=== PATIENT | male | born 1990 | race Caucasian/White ===

== ENCOUNTER 2025-04-09 07:49 | Outpatient (CLI) | payer BC, SELFPAY ==
--- NOTE | ~2025-04-09 | US_ITS ---
Limited Abdominal Sonogram: Real-time sonographic imaging of the right upper quadrant was performed. Clinical History: Abnormal liver enzymes Findings: The liver appears echogenic, with no evidence of mass lesion or bile duct dilatation. Main portal vein demonstrates normal direction of flow. The gallbladder is well distended, and appears no rmal with no evidence of gallstone or wall thickening. The common bile duct measures 5 mm. The visua lized pancreas, aorta, and IVC are unremarkable. Impression: Diffuse fatty infiltration of liver. Reviewed, dictated and finalized at location M. Impression: Diffuse fatty infiltration of liver.
== END 2025-04-09 07:50 | disposition home or self-care (01) ==
PROVIDERS: PCP Physician Assistant; Visit Provider Physician Assistant
DX: R74.01 Elevation of levels of liver transaminase levels (principal); K76.0 Fatty (change of) liver, not elsewhere classified
CPT/HCPCS: 76705

== ENCOUNTER 2025-04-12 00:31 | Day surgery (SDC) | payer BC, SELFPAY ==
[2025-04-03 13:33] VITALS: BMI 29.5
--- NOTE | 2025-04-03 13:42 | PC.NURSE ---
Report to the Outpatient Waiting Room, entrance under the green pavilion located off [facility], at time _0830_ on date _[id number]_. Planned Procedure Time: _1030_. Time changes happen often and if your time is changed the preop area will call you the afternoon before. - You and your visitor will be asked to self-screen and do not enter if you have any COVID symptoms. Please call surgeon if you need to reschedule. - A mask is optional within the hospital at this time. - No food or drink from midnight until time of surgery and no smoking, or chewing tobacco (or any form of nicotine). No chewing gum, candy or mints. Take only the following medications with a SIP of water on the morning of surgery: __Bupropion, Buspirone and Levothyroxine___ DO NOT STOP ANY OF YOUR OTHER PRESCRIPTION MEDICATIONS PRIOR TO SURGERY EXCEPT THE FOLLOWING Hold all vitamins and supplements for 3 days per anesthesiologist. Medications to discontinue per physician Date to take last dose Please no make-up, nail indonesian, hairspray, perfume, deodorant, or body powder the day of surgery. No jewelry (including any body piercings) or valuables the day of surgery, leave them at home. Please take a shower or bath the night before, or the morning of, surgery with an antibacterial soap. Wear comfortable, loose fitting clothing. - Jewelry must be removed prior to entering the operating room. Rings and piercings that are not removed may be cut off. - The hospital will not accept responsibility for valuables. - Please leave all valuables, including medications, at home the day of surgery. If you are going home after surgery, a licensed driver trainee must drive you home. - NO public transportation without another adult if you receive anesthesia. - We recommend that an adult stay with you for 24 hours following discharge. - We also recommend that you do not drive, make important decision, drink alcoholic beverages, or take any drugs that were not prescribed by your health care provider for at least 24 hours after your discharge time. Follow any additional instructions given to you from your surgeon. Telephone instructions given to __Aman__and asked if any additional questions and then verbalized understanding. Patient advised to call surgeon office or pre surgery nurse liaison [phone] if any additional questions.
--- OUTSIDE RECORDS SUMMARY | 2025-04-12 00:34 | XMS_ITS | Data Portability ---
Author Organization [place] - [email or web address], Main Office Address [address] [place] [address] Assessment No assessment recorded. Plan of Treatment Reminders Order Date Submit Date Provider Last Modified By Organization Details Last Modified Time Details Appointments None recorded. Lab hepatitis panel (A+B+C), acute, serum 2023 024 [email or web address] [facility] (Lab), [address] [place], [address], 4 09:18:19 gamma-gluta myl transferase (ggt), serum 2023 024 [email or web address] 2 [facility] (Lab), [address] [place], [address], 4 09:18:19 amylase, serum or plasma 2023 024 [email or web address] 2 [facility] (Lab), [address] [place], [address], 4 09:18:19 hepatic function panel, serum 2023 024 [email or web address] 2 [facility] (Lab), [address] [place], [address], 4 09:18:19 lipid panel, serum 2023 024 [email or web address] 2 [facility] (Lab), [address] [place], [address], 4 09:40:56 CMP, serum or plasma 2023 024 [email or web address] 2 [facility] (Lab), [address] [place], [address], 4 09:40:56 CK (creatine kinase), total, serum 2023 [facility] [place] (Lab), [address] [place], [address], 4 09:40:56 CBC w/ auto diff 2023 024 [facility] [place] (Lab), [address] [place], [address], 4 09:40:56 glycohemogl obin, total, blood 2023 024 [facility] [place] (Lab), [address] [place], [address], 4 09:40:56 T4, free, serum 2023 024 [facility] [place] (Lab), [address] [place], [address], 4 09:40:55 TSH, serum or plasma 2023 024 [facility] [place] (Lab), [address] [place], [address], 4 09:40:55 Hepatitis B virus core Ab, qual immunoassay , serum or plasma 2023 024 [facility] [place] (Lab), [address] [place], [address], 4 09:40:56 thyroid peroxidase (tpo) Ab, serum 2023 024 [facility] [place] 2 [facility] (Lab), [address] [place], [address], 4 09:40:56 thyroid peroxidase (tpo) Ab, serum 2023 024 [email or web address] 2 [facility] (Lab), [address] [place], [address], 4 12:41:37 T4, free, serum 2023 024 [email or web address] 2 [facility] (Lab), [address] [place], [address], 4 12:41:37 Hepatitis B virus core Ab, qual immunoassay , serum or plasma 2023 024 [email or web address] 2 [facility] (Lab), [address] [place], [address], 4 12:41:37 TSH, serum or plasma 2023 024 [email or web address] 2 [facility] (Lab), [address] [place], [address], 4 12:41:38 folate, serum 2023 024 [email or web address] 2 [facility] (Lab), [address] [place], [address], 4 12:41:38 vitamin B12, serum 2023 024 [email or web address] 2 [facility] (Lab), [address] [place], [address], 4 12:41:38 CBC w/ auto diff 2022 023 RANDY [facility] (Lab), [address] [place], [address], 3 12:43:00 TSH, serum or plasma 2022 023 [facility] (Lab), [address] [place], [address], 3 13:34:11 lipid panel, serum 2022 023 [facility] (Lab), [address] [place], [address], 3 13:05:21 CMP, serum or plasma 2022 023 [facility] (Lab), [address] [place], [address], 3 13:05:26 PSA, serum or plasma [address] (Lab), [address] [place], [address], 3 07:58:09 RPR (rapid plasma reagin), serum [address] (Lab), [address] [place], [address], 3 07:58:09 hsv (1+2) igg Ab, serum [address] (Lab), [address] [place], [address], 3 07:58:09 unlisted lab - HIV 1/2 Ab screen w/reflex [address] (Lab), [address] [place], [address], 3 07:58:09 hepatitis C virus Ab, serum [address] (Lab), [address] [place], [address], 3 07:58:09 HBsAg (hepatitis B surface Ag), serum 2022 023 [facility] (Lab), [address] [place], [address], 3 13:35:08 Referral hand surgeon referral - ganglion cyst left wrist Please call patient to schedule appointment 2023 024 [email or web address] Arik Valdez MD, [address] [facility] [address], [place], [address], 4 08:55:[address] referral - skin lesion right suprapubic area Please call patient to schedule appointment . 2023 024 [email or web address] Sarah Perez MD (Dermatology) , [address] [facility] , [address], [place], [address], 4 09:07:49 Procedures None recorded. Surgeries None recorded. Imaging US, liver - Please call patient to schedule. 2023 [email or web address] [place] [address] ([facility]), [address] [place], [address], 4 10:56:44 US, scrotum 2022 023 [facility], [address] [place] [address] , [place], [address], 3 10:35:12 Medication Orders ezetimibe 10 mg tablet 2023 024 [facility], [address] [place], [address], 4 17:25:00 fenofibrate micronized 134 mg capsule 2023 024 [facility], [address] [place], [address], 17:25:02 Patient TargetsNo targets recorded. Patient Instructions Encounter Date Encounter Id Patient Instructions Last Modified By Organization Details Last Modified Time 08/16/2024 [id number] liver enzymes up , will order an us of liver and hepatitis panel , GGT , chol and triglyerides a little high , will order some meds . 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 Referring Physician: Felix Wright [facility], Encounter Date: 11/29/2023 Hand Surgeon Referral for Ga nglion cyst of left hand ganglion cyst left wrist Please call patient to schedule appointment Referring Physician: Felix Wright [facility], Encounter Date: 11/29/2023 Results Created Date Observation Date Name Description Value Unit Range Abnormal Flag Note LastModifiedBy Organization Detail LastModifiedTime 05/23/2005/23/2023 CBC/C OMPLE TE BLD COUNT W/DIF F white blood cells 8.3 x10'3 /uL 4.2-10 .8 Not Available [facility] (Lab) [address] [place], [address], 05/23/2023 12:42:59 05/23/2005/23/2023 CBC/C OMPLE TE BLD COUNT W/DIF F red blood cells 5.08 x10'6 /uL 4.10-5 .80 Not Available [facility] (Lab) [address] [place], [address], 05/23/2023 12:42:59 05/23/2005/23/2023 CBC/C OMPLE TE BLD COUNT W/DIF F hemoglobin 15.5 g/dL 13.2-1 7.0 Not Available [facility] (Lab) [address] [place], [address], 05/23/2023 12:42:59 0605/23/2023 CBC/C OMPLE TE BLD COUNT W/DIF F hematocrit 46.5 % 39.3-5 0.0 Not Available [facility] (Lab) [address] [place], [address], 05/23/2023 12:42:59 05/23/20 23 05/23/2023 CBC/C OMPLE TE BLD COUNT W/DIF F mean red cell volume 91.5 fL 80.0-9 7.0 Not Available [facility] (Lab) [address] [place], [address], 05/23/2023 12:42:59 05/23/2005/23/2023 CBC/C OMPLE TE BLD COUNT W/DIF F mean red cell hemoglobin 30.5 pg 27.0-3 3.0 Not Available [facility] (Lab) [address] [place], [address], 05/23/2023 12:42:59 05/23/2005/23/2023 CBC/C OMPLE TE BLD COUNT W/DIF F mean RBC HGB concentratio n 33.3 g/dL 31.0-3 6.0 Not Available [facility] (Lab) [address] [place], [address], 05/23/2023 12:42:59 05/23/2005/23/2023 CBC/C OMPLE TE BLD COUNT W/DIF F red cell distribution width 13.5 % 11.8-1 5.5 Not Available [facility] (Lab) [address] [place], [address], 05/23/2023 12:42:59 05/23/2005/23/2023 CBC/C OMPLE TE BLD COUNT W/DIF F platelets 304 x10'3 /uL 150-40 0 Not Available [facility] (Lab) [address] [place], [address], 05/23/2023 12:42:59 05/23/20 23 05/23/2023 CBC/C OMPLE TE BLD COUNT W/DIF F mean platelet volume 10.8 fL 9.0-12 .4 Not Available [facility] (Lab) [address] [place], [address], 05/23/2023 12:42:59 05/23/2005/23/2023 CBC/C OMPLE TE BLD COUNT W/DIF F neutrophils 53.4 % 39.0-7 2.0 Not Available [facility] (Lab) [address] [place], [address], 05/23/2023 12:42:59 05/23/2005/23/2023 CBC/C OMPLE TE BLD COUNT W/DIF F lymphocytes 28.9 % 16.0-4 7.0 Not Available [facility] (Lab) [address] [place], [address], 05/23/2023 12:42:59 05/23/2005/23/2023 CBC/C OMPLE TE BLD COUNT W/DIF F monocytes 6.8 % 5.0-12 .0 Not Available [facility] (Lab) [address] [place], [address], 05/23/2023 12:42:59 05/23/2005/23/2023 CBC/C OMPLE TE BLD COUNT W/DIF F eosinophils 9.6 % 1.0-7. 0 high Not Available [facility] (Lab) [address] [place], [address], 05/23/2023 12:42:59 05/23/2005/23/2023 CBC/C OMPLE TE BLD COUNT W/DIF F basophils 0.8 % 0.0-2. 0 Not Available [facility] (Lab) [address] [place], [address], 05/23/2023 12:42:59 05/23/20 23 05/23/2023 CBC/C OMPLE TE BLD COUNT W/DIF F immature granulocytes 0.5 % 0.00-0 .50 Not Available [facility] (Lab) [address] [place], [address], 05/23/2023 12:42:59 05/23/20 23 05/23/2023 CBC/C OMPLE TE BLD COUNT W/DIF F neutrophils, absolute count 4.44 x10'3 /uL 1.5-8. 0 Not Available [facility] (Lab) [address] [place], [address], 05/23/2023 12:42:59 05/23/2005/23/2023 CBC/C OMPLE TE BLD COUNT W/DIF F lymphocytes, absolute count 2.41 x10'3 /uL 1.07-3 .43 Not Available [facility] (Lab) [address] [place], [address], 05/23/2023 12:42:59 05/23/20 23 05/23/2023 CBC/C OMPLE TE BLD COUNT W/DIF F monocytes, absolute count 0.57 x10'3 /uL 0.29-0 .99 Not Available [facility] (Lab) [address] [place], [address], 05/23/2023 12:42:59 05/23/2005/23/2023 CBC/C OMPLE TE BLD COUNT W/DIF F eosinophils, absolute count 0.80 x10'3 /uL 0.02-0 .53 high Not Available [facility] (Lab) [address] [place], [address], 05/23/2023 12:42:59 05/23/20 23 05/23/2023 CBC/C OMPLE TE BLD COUNT W/DIF F basophils, absolute count 0.07 x10'3 /uL 0.01-0 .08 Not Available [facility] (Lab) [address] [place], [address], 05/23/2023 12:42:59 05/23/2005/23/2023 CBC/C OMPLE TE BLD COUNT W/DIF F immature granulocytes ,absolute 0.04 x10'3 /uL 0.00-0 .05 Not Available [facility] (Lab) [address] [place], [address], 05/23/2023 12:42:59 05/23/20 23 05/23/2023 CBC/C OMPLE TE BLD COUNT W/DIF F nucleated red blood cells 0.0 % -0 Not Available [facility] (Lab) [address] [place], [address], 05/23/2023 12:42:59 05/23/20 23 05/23/2023 CBC/C OMPLE TE BLD COUNT W/DIF F NRBC# 0.00 x10'3 /uL Not Available [facility] (Lab) [address] [place], [address], 05/23/2023 12:42:59 05/23/2005/23/2023 LIPID PANEL cholesterol 195 mg/dL 140-19 9 NIH PETER NSUS RECOM MENDA TION FOR DORIS STERO L: ADULT CHILD LOW RISK: <200 <170 BORDE RLINE : <200- 239 ----- HIGH RISK: >240 >200 Not Available [facility] (Lab) [address] [place], [address], 05/23/2023 13:05:21 05/23/2005/23/2023 LIPID PANEL triglyceride s 153 mg/dL 0-150 high NIH PETER NSUS REPOR T RECOM MENDA TION FOR TRIGL YCERI DAVIDE: ADULT CHILD LOW RISK: <150 ----- BODER LINE: 150-1 99 ----- HIGH RISK: >200 ----- Not Available [facility] (Lab) [address] [place], [address], 05/23/2023 13:05:21 05/23/20 23 05/23/2023 LIPID PANEL HDL cholesterol 44 mg/dL 40- Not Available [facility] (Lab) [address] [place], [address], 05/23/2023 13:05:21 05/23/20 23 05/23/2023 LIPID PANEL LDL cholesterol, calculated 120 mg/dL 0-130 NIH PETER NSUS REPOR T RECOM MENDA TIONS FOR LDL: ADULT CHILD LOW RISK <130 <110 (OPTI MAL LDL) <100 ----- BORDE RLINE : 130-1 59 ----- HIGH RISK: >160 >130 A TRIGL YCERI DE RESUL T >400 INVAL IDATE S THE CALCU LATIO N FOR LDL FRACT IONAT ION - THE LDL RESUL T WILL NOT BE REPOR TOÑA. Not Available [facility] (Lab) [address] [place], [address], 05/23/2023 13:05:21 05/23/20 23 05/23/2023 COMPR EHENS LILI METAB OLIC PANEL sodium 139 mmol/ L 137-14 5 Not Available [facility] (Lab) [address] [place], [address], 05/23/2023 13:05:26 05/23/20 23 05/23/2023 COMPR EHENS LILI METAB OLIC PANEL potassium 4.6 mmol/ L 3.5-5. 1 Not Available [facility] (Lab) [address] [place], [address], 05/23/2023 13:05:26 05/23/20 23 05/23/2023 COMPR EHENS LILI METAB OLIC PANEL chloride 104 mmol/ L 98-107 Not Available [facility] (Lab) [address] [place], [address], 05/23/2023 13:05:26 05/23/20 23 05/23/2023 COMPR EHENS LILI METAB OLIC PANEL carbon dioxide 24 mmol/ L 22-30 Not Available [facility] (Lab) [address] [place], [address], 05/23/2023 13:05:26 05/23/20 23 05/23/2023 COMPR EHENS LILI METAB OLIC PANEL anion gap 15.6 mmol/ L 14-22 Not Available [facility] (Lab) [address] [place], [address], 05/23/2023 13:05:26 05/23/20 23 05/23/2023 COMPR EHENS LILI METAB OLIC PANEL glucose 99 mg/dL 70-99 Not Available [facility] (Lab) [address] [place], [address], 05/23/2023 13:05:05/23/20 23 05/23/2023 COMPR EHENS LILI METAB OLIC PANEL BUN 14 mg/dL 8-19 Not Available [facility] (Lab) [address] [place], [address], 05/23/2023 13:05:26 05/23/20 23 05/23/2023 COMPR EHENS LILI METAB OLIC PANEL creatinine 0.87 mg/dL 0.66-1 .25 Not Available [facility] (Lab) [address] [place], [address], 05/23/2023 13:05:05/23/20 23 05/23/2023 COMPR EHENS LILI METAB OLIC PANEL GFR >60 Refer ence Range : [place] ge GFR Healt hy Adult : >60 mL/mi n/1.7 3 m2 Chron ic Kidne y Disea se: 15-60 mL/mi n/1.7 3 m2 Kidne y Failu re: <15/m L/min /1.73 m2 www.n iddk. nih.g ov The MDRD study equat ion has not been valid ated in child vinita <18 years of age; pregn ant women ; the elder ly >85 years of age; or in some racia l or ethni c subgr oups, such as Hispa nics. Outsi de the valid ated nato eters , estim ated GFR is less accur ate, requi ring clini huyen judgm ent on a case- by-ca se basis . Clini huyen inter preta tion for other races and ages must be made by the clini jordi. The MDRD study equat ion has not been valid ated for the evalu ation of serum creat inine relat ed to nutri becky l statu s or medic ation usage . For perso ns <18 years of age, a pedia tric GFR calcu lator is avail able on the [facility] websi te: https ://pavan beaver.malcolm ku.o joel/pr ofess ional s/kdo qi/gf r_cal culat or Not Available [facility] (Lab) [address] [place], [address], 05/23/2023 13:05:26 05/23/20 23 05/23/2023 COMPR EHENS LILI METAB OLIC PANEL alkaline phosphatase 61 U/L 38-126 Not Available [facility] (Lab) [address] [place], [address], 05/23/2023 13:05:26 05/23/20 23 05/23/2023 COMPR EHENS LILI METAB OLIC PANEL alanine aminotransfe rase 98 U/L 0-50 high Not Available [facility] (Lab) [address] [place], [address], 05/23/2023 13:05:26 05/23/20 23 05/23/2023 COMPR EHENS LILI METAB OLIC PANEL aspartate aminotransfe rase 40 U/L 15-46 Not Available [facility] (Lab) [address] [place], [address], 05/23/2023 13:05:26 05/23/20 23 05/23/2023 COMPR EHENS LILI METAB OLIC PANEL bilirubin, total 0.30 mg/dL 0.20-1 .30 Not Available [facility] (Lab) [address] [place], [address], 05/23/2023 13:05:26 05/23/20 23 05/23/2023 COMPR EHENS LILI METAB OLIC PANEL calcium 9.8 mg/dL 8.4-10 .2 Not Available [facility] (Lab) [address] [place], [address], 05/23/2023 13:05:26 05/23/20 23 05/23/2023 COMPR EHENS LILI METAB OLIC PANEL total protein 7.4 g/dL 6.3-8. 2 Not Available [facility] (Lab) [address] [place], [address], 05/23/2023 13:05:26 05/23/20 23 05/23/2023 COMPR EHENS LILI METAB OLIC PANEL albumin 4.6 g/dL 3.4-5. 0 Not Available [facility] (Lab) [address] [place], [address], 05/23/2023 13:05:26 05/23/20 23 05/23/2023 COMPR EHENS LILI METAB OLIC PANEL globulin 2.8 g/dL 2.6-4. 2 Not Available [facility] (Lab) [address] [place], [address], 05/23/2023 13:05:26 05/23/20 23 05/23/2023 COMPR EHENS LILI METAB OLIC PANEL A/G ratio 1.6 ratio 1.0-2. 0 Not Available [facility] (Lab) [address] [place], [address], 05/23/2023 13:05:26 05/23/20 23 05/23/2023 TSH thyroid-stim ulating hormone 5.190 uIU/m L 0.465- 4.680 high Not Available [facility] (Lab) [address] [place], [address], 05/23/2023 13:34:11 05/23/20 23 05/23/2023 PSA, TOTAL PSA, total 0.93 NG/mL 0.00-4 .00 Not Available [facility] (Lab) [address] [place], [address], 05/23/2023 13:34:20 05/23/20 23 05/23/2023 HEP B SURF ANTIG EN W/CON FIRM hepatitis B surface antigen NON-RE ACTIVE non-re active All speci mens react illi for Hepat itis B Surfa ce Antig en will refle x to refer ral lab confi rmato ry testi ng. Not Available [facility] (Lab) [address] [place], [address], 05/23/2023 13:35:08 05/23/20 23 05/23/2023 HEP B SURF ANTIG EN W/CON FIRM HBV surf.antigen signal/cutof f 0.04 0.00-0 .99 Not Available [facility] (Lab) [address] [place], [address], 05/23/2023 13:35:08 05/23/20 23 05/23/2023 HIV COMBO : HIV 1/2 AB,P2 4 AG HIV combo assay NON-RE ACTIVE nonrea ctive The HIV combo test scree ns for HIV-1 , HIV-2 , HIV p24 Ag, and HIV group O. Any react lili scree n resul t will be sent for PCR confi rmato ry testi ng. Not Available [facility] (Lab) [address] [place], [address], 05/23/2023 13:56:16 05/23/20 23 05/23/2023 HIV COMBO : HIV 1/2 AB,P2 4 AG signal/cutof f 0.09 0.00-0 .99 Not Available [facility] (Lab) [address] [place], [address], 05/23/2023 13:56:16 05/23/2005/23/2023 HEPAT ITIS C/HCV ANTIB ACE hepatitis C antibody NON-RE ACTIVE non-re active All speci mens react lili for Hepat itis C Virus antib ace will refle x to PCR confi rmato ry testi ng. Pleas e allow 48-72 hours for resul ts. Not Available [facility] (Lab) [address] [place], [address], 05/23/2023 13:56:32 05/23/20 23 05/23/2023 HEPAT ITIS C/HCV ANTIB ACE hepatitis C virus signal/cutof 0.01 0.00-0 .99 Not Available [facility] (Lab) [address] [place], [address], 05/23/2023 13:56:32 05/23/20 23 05/24/2023 HERPE S/HSV 1 hsv type 1 IgG <0.91 index 0.00-0 .90 Negat lili <0.91 Equiv ocal 0.91 - 1.09 Posit lili >1.09 Note: Negat lili indic ates no antib odies detec toña to HSV-1 . Equiv ocal may sugge st early infec tion. If clini geovany appro priat e, retes t at later date. Posit lili indic ates antib odies detec toña to HSV-1 . Not Available [facility] (Lab) [address] [place], [address], 05/24/2023 08:18:32 05/23/2005/24/2023 HERPE S/HSV 1 hsv type 2 IgG <0.91 index 0.00-0 .90 Negat lili <0.91 Equiv ocal 0.91 - 1.09 Posit lili >1.09 HSV-2 Antib ace Inter preta tion: Negat lili indic ates no detec table antib odies to HSV-2 were found . If recen t expos ure is suspe cted, retes t in 4-6 weeks . Equiv ocal sampl es shoul d be retes toña in 4-6 weeks . Posit lili indic ates the prese nce of detec table IgG antib ace to HSV-2 . False posit lili resul ts may occur . Repea t testi ng, or testi ng by a diffe rent metho d, may be indic ated in some setti ngs (e.g. patie nts with low likel ihood of HSV infec tion) . If clini geovany appro priat e, retes t 4-6 weeks later . Perfo rmed at: [facility] [address] [facility], [place] [address] Lab Direc tor: Jevon gaming PhD, Phone : [phone] Not Available [facility] (Lab) [address] [place], [address], 05/24/2023 08:18:32 05/23/20 23 05/27/2023 RPR SCREE N RPR NON-RE ACTIVE nonrea ctive Not Available [facility] (Lab) [address] [place], [address], 05/27/2023 12:19:37 01/18/20 24 01/19/2024 THYRO XINE (T4) FREE, DIREC T T4,free(dire ct) 1.14 NG/dL 0.82-1 .77 Not Available [facility]) [address] [facility], [place], [address], 01/19/2024 20:09:08 01/18/20 24 01/19/2024 FOLAT E (FOLI C ACID) , SERUM folate (folic acid), serum 8.1 NG/mL >3.0 A serum folat e peter ntrat ion of less than 3.1 ng/mL is consi dered to repre sent clini huyen defic iency . Not Available [facility] ([facility]) [address] [facility], [place], [address], 01/19/2024 20:09:10 01/18/20 24 01/19/2024 TSH TSH 4.780 uIU/m L 0.450- 4.500 above high normal Not Available [facility] ([facility]) [address] [facility], [place], [address], 01/19/2024 20:09:11 01/18/20 24 01/19/2024 THYRO GLOBU VAHE ANTIB ACE thyroglobuli n antibody 1.0 IU/mL 0.0-0. 9 above high normal Thyro globu vahe Antib ace measu red by Gracy oliveira Coult er Metho dolog y It shoul d be noted that the prese nce of thyro globu vahe antib odies may not be patho genic nor diagn ostic , espec ially at very low level s. The assay manuиван actur er has found that four perce nt of indiv idual s witho ut evide nce of thyro id disea se or autoi mmuni ty will have posit lili TgAb level s up to 4 IU/mL . Not Available [facility] ([facility]) [address] [facility], [place], [address], 01/19/2024 20:09:11 01/18/20 24 01/19/2024 VITAM IN B12 vitamin B12 593 pg/mL 232-12 45 Not Available [facility] ([facility]) [address] [facility], [place], [address], 01/19/2024 20:09:12 01/18/20 24 01/19/2024 THYRO ID PEROX IDASE (TPO) AB thyroid peroxidase (tpo) Ab 18 IU/mL 0-34 Not Available [facility]) [address] [facility], [place], [address], 01/19/2024 20:09:13 07/22/20 22 07/22/2022 elect ja knox am No observ ation record ed. [id number] [facility] [address], [place], [address], 01/26/2023 23:12:39 05/23/20 23 US, scrot um [facility] [address], [place] [address] [phone] Patimary t Name: WAGNER MICHELLE Access ion #: [id number] Sex: M : 1989 0 Locati on: MO2 Attend ing Physic harvey: ELKHAT IB, RUNDA Orderi ng Physic harvey: ELKHAT IB, RUNDA Exam Date: 023 8:43 AM Exam Name: US SCROTU M AND CONTEN T Admitt ing Diagno sis(es ): RADIOL OGY REPORT - FINAL EXAM: US SCROTU M AND CONTEN T HISTOR Y: Left scrota l-left testis pain COMPAR VELASQUEZ: None. TECHNI QUE: Real-t peggy high-r esolut ion ultras ound imagin g of the scrota l conten ts was perfor med. Dopple r imagin g is also perfor med. FINDIN GS: Right hemisc rotum: Dimens ions of the right testis are 4.1 x 2 x 2.4. The echoge na appear ance of the testis is within normal limits . Normal blood flow is docume nted. There is not eviden ce of a mass of the right testis . The right epidid ymis is unrema rkable measur ing 0.7 x 0.9 x 1.3. Note is made of an epidid ymal cyst measur ing 0.2 cm. There is no eviden ce of a hydroc soila, Page 1 of 2 [facility] Patimary t Name: WAGNER MICHELLE Access ion #: [id number] Sex: M : 1989 0 Exam Date: 023 8:43 AM Exam Name: US SCROTU M AND CONTEN T Admitt ing Diagno sis(es ): varix, or hernia . Left hemisc rotum: Dimens ions of the left testis are 3.3 x 1.9 x 2.3. The echoge na appear ance of the testis is within normal limits . Normal blood flow is docume nted. There is not eviden ce of a mass of the left testis . The left epidid ymis is unrema rkable measur ing 1.0 x 1.0 x 1.1. There is no eviden ce of a hydroc soila, varix, or hernia . IMPRES MISHA: Small right epidid ymal cyst measur ing 0.2 cm. No eviden ce of epidid ymal orchit is. Create d and electr onical ly signed by: Kenny bennett MD Signed Date: 9:32 AM (CT) Dictat ed by: Kenny bennett MD DD: 9:32 AM (CT) DT: 9:32 AM (CT) Page 2 of [address] (Imaging) [address] [place] [address], [address], 05/23/2023 16:40:27 05/23/20 23 05/23/2023 US, scrot um [id number]|2025-04-12 06:53:00|2025-04-12 06:53:00|P.HPUP_ITS|ABERNATH[facility]|Health Information Management|[id number]|"History and Physical Update Update Date/Time: 04/12/25 06:53 Patient seen and examined in pre-operative holding area. No interval change in medical history or symptoms. Patient recalls previous discussion of benefits and alternatives to procedure. Continues to desire to proceed with left dorsal wrist ganglion excision . Reviewed procedure, post-op expectations and risks including but not limited to bleeding, infection, injury to tendon/nerve/vessel, decreased hand function, stiffness, RSD, no change or worsening of symptoms, recurrence. I discussed the possible use of assistants and their participation in the case. Patient stated understanding and signed the consent form wishing to proceed. "
--- NOTE | 2025-04-12 06:53 | PM.HPGS ---
History of Present Illness History of Present Illness Chief complaint: ganglion cyst left wrist Narrative: Patient seen and examined in pre-operative holding area. No interval change in medical history or symptoms. Patient recalls previous discussion of benefits and alternatives to procedure. Continues to desire to proceed with left dorsal wrist ganglion excision . Reviewed procedure, post-op expectations and risks including but not limited to bleeding, infection, injury to tendon/nerve/vessel, decreased hand function, stiffness, RSD, no change or worsening of symptoms, recurrence. I discussed the possible use of assistants and their participation in the case. Patient stated understanding and signed the consent form wishing to proceed. Review of Systems Review of Systems: All systems reviewed & are unremarkable except as noted in HPI and below PMFSH Past Medical History Medical History (Updated 08/14/24 @ 12:56 by Barrie Carmona MD) Hypothyroidism Headache Anxiety Family History Family History Mother Depression Thyroid disease Alcoholism Father Hypertension Heart disease Social History Social History Smoking status: Never smoker Alcohol intake: current Alcohol use details: glass a wine a week Substance use: never Do You Feel Safe in your Home?: Yes Lack of Transportation: No Lack of Food: Never True Current Housing: I Have Housing Concerned About Future Housing: No Difficulty Paying Gas/Electric Bills: No Difficulty Paying for Meds: No Currently Unemployed: No Education: Bachelor's Degree Difficulty w/ Childcare or Family Care: No Living arrangements: with family Spiritual care concerns: No Meds Home Medications and Allergies Home Medications Medication Instructions Recorded Confirmed Type levothyroxine 50 mcg capsule 50 mcg PO DAILY 03/05/24 04/12/25 History bupropion HCl 150 mg 24 hr tablet, 150 mg PO QAM 08/14/24 04/12/25 History extended release (Wellbutrin XL) buspirone 5 mg tablet 5 mg PO BID 08/14/24 04/12/25 History Allergies Allergy/AdvReac Type Severity Reaction Status Date / Time Penicillins Allergy Severe Rash Verified 04/12/25 12:18 Exam Narrative: unchanged Assessment and Plan Assessment and plan (1) Ganglion cyst of dorsum of left wrist: Code(s): M67.432 - Ganglion, left wrist Status: Acute Assessment and Plan: cont as above
--- NOTE | 2025-04-12 06:54 | W.PM.PROC2 ---
Procedure Note - Detailed Date of Procedure 04/12/25 Pre-op Diagnosis ganglion cyst left dorsal wrist Post-op Diagnosis Same Procedure Performed excision left dorsal wrist ganglion cyst Surgeon Arik Valdez MD [facility] Assistant keshia mcgrath pa-c Anesthesia MAC Description of Procedure INFORMED CONSENT: The patient was seen and examined and marked in the pre-op area. The patient signed the consent form. PROCEDURE IN DETAIL:The patient taken back to OR on the stretcher in supine position. Time out performed with anesthesia, surgeon and staff agreeing on patient's name site and surgery to be performed SCDs were placed on the lower extremities and inflated. A tourniquet was placed on {left} upper extremity and antibiotics given IV After anesthesia administered sedation I injected {6}cc 1%lido with epi and 0.5% marcaine plain at the operative site The {left upper extremity} was prepped and draped in sterile fashion the {left upper extremity} was exsanguinated with Esmarch bandage proximal to the mass and tourniquet inflated to 250mmHg I proceeded with making a longitudinal incision over the left dorsal wrist mass through skin and dermis with 15 blade scalpel. Littler scissors were used to spread through subcutaneous tissue down to the mass which appeared consistent with a ganglion cyst coming off of the dorsal wrist capsule. I proceeded with circumferential dissection of this mass and its stalk down to the dorsal wrist capsule where it was transected with bipolar cautery. I irrigated with normal saline. I repaired the capsular defect with 4-0 Vicryl suture. 4-0 Vicryl was used for dermal closure and 4-0 Monocryl for subcuticular closure. A dressing of Dermabond, 4x4, jennifer, and a volar splint was applied for patient safety, security, and comfort and secured with an neftali bandage after the tourniquet was let down noting the hand was warm and well perfused. The patient was then awaken from anesthesia and transferred to the recovery room in stable condition. Complications - none EBL- 0cc Disposition - home in stable conditions keshia mcgrath pa-c was essential for positioining, retraction, closure and dressing placement [facility] Billing Surgery - Charge Forward: Surgery Billing ([id number] same for keshia macdonald )
[2025-04-12 11:20] VITALS: BMI 29.2
[2025-04-12 11:55] VITALS: BP 139/87; PULSE 82; RESP 16; TEMP 36.9; O2SAT 98
[2025-04-12] MEDS: LACTATED RINGERS 1,000 ML 30 ML IV CONT (11:55)
--- NOTE | 2025-04-12 12:49 | P.PNAN_ITS ---
Anes - Initial Pre Proc Eval Procedure: Operation Date: 04/12/25 14:00 Proposed Procedures p Left Dorsal Wrist Ganglion Cyst Excision - Arik Valdez MD Date/Time: 04/12/25 12:49 Surgeon: Arik Valdez MD Pre Op Diagnosis: ganglion cyst left wrist Patient Data Age: 34 Gender: M Height: 1.78 m Weight: 92.6 kg Last Vital Signs Temp 36.9 C 04/12/25 11:55 Pulse 82 04/12/25 11:55 Resp 16 04/12/25 11:55 BP 139/87 04/12/25 11:55 Pulse Ox 98 04/12/25 11:55 O2 Del Method Room Air 04/12/25 11:55 Allergies Allergy/AdvReac Type Severity Reaction Status Date / Time Penicillins Allergy Severe Rash Verified 04/12/25 12:18 Home Medications Medication Instructions Recorded Confirmed Type levothyroxine 50 mcg capsule 50 mcg PO DAILY 03/05/24 04/12/25 History bupropion HCl 150 mg 24 hr tablet, 150 mg PO QAM 08/14/24 04/12/25 History extended release (Wellbutrin XL) buspirone 5 mg tablet 5 mg PO BID 08/14/24 04/12/25 History Patient hx anesthesia problems: none Family hx anesthesia problems: none Results Review: All pre-operative results and documents have been reviewed as part of the pre- operative evaluation. [facility] Past Medical History Medical History Hypothyroidism Headache Anxiety Family History Family History Mother Depression Thyroid disease Alcoholism Father Hypertension Heart disease Social History Social History Smoking status: Never smoker Alcohol intake: current Alcohol use details: glass a wine a week Substance use: never Do You Feel Safe in your Home?: Yes Lack of Transportation: No Lack of Food: Never True Current Housing: I Have Housing Concerned About Future Housing: No Difficulty Paying Gas/Electric Bills: No Difficulty Paying for Meds: No Currently Unemployed: No Education: Bachelor's Degree Difficulty w/ Childcare or Family Care: No Living arrangements: with family Spiritual care concerns: No Anes - Eval Final PreProcedure Day of Procedure 04/12/25 12:49 Patient weight: overweight Heart: regular rate and rhythm Lungs: clear to auscultation Airway: Mallampati scale class II Neurological: alert and oriented Last oral intake: >/= 8 hours ASA classification: II Emergent: no Anesthetic plan: proceed Anesthesia type and monitoring: general GIVS and standard monitoring Results Review: All pre-operative results and documents have been reviewed as part of the pre- operative evaluation. Informed Consent: The patient's anesthetic plan and its attendant risks and benefits were discussed with the patient/family/POA. Questions were solicited and answers provided to the satisfaction of the patient/family/POA.
[2025-04-12] MEDS: ceFAZolin 2 GM/D5W 50 ML 2 GM/50 ML BAG IVPB (14:08)
[2025-04-12] MEDS: BUPivacaine HCL 0.5% 10 ML AMP INFILTRATE (14:17)
[2025-04-12] MEDS: LIDO 1%/EPINEPHRINE 1:100,000 20 ML VIAL 10 ML INFILTRATE (14:17)
[2025-04-12 14:36] VITALS: BP 111/64; PULSE 84; RESP 16; O2SAT 94
[2025-04-12 15:05] VITALS: BP 116/75; PULSE 67; RESP 16
[2025-04-12 15:35] VITALS: BP 111/64; PULSE 91; RESP 16
== END 2025-04-12 15:35 | disposition home or self-care (01) ==
PROVIDERS: PCP Physician Assistant; Visit Provider Plastic Surgery
PROC: (CPT 25111; principal; 2025-04-12 14:00)
DX: M67.432 Ganglion, left wrist (principal); E03.9 Hypothyroidism, unspecified; F41.9 Anxiety disorder, unspecified; Z82.49 Family history of ischemic heart disease and other diseases of the circulatory system
CPT/HCPCS: 25111; 88305; J0690; J2003; J2004; J2250; J2704; J3010; J7120

== ENCOUNTER 2025-10-14 10:16 | Outpatient (CLI) | payer BC, SELFPAY ==
--- NOTE | ~2025-10-14 | US_ITS ---
EXAMINATION: US thyroid DATE: 10/14/2025 10:37 INDICATION: Thyroiditis TECHNIQUE: Multiple ultrasound images of the thyroid were obtained. COMPARISON: None. FINDINGS: The right thyroid lobe measures 4.1 x 1.5 x 1.4 cm. The left thyroid lobe measures 3.7 x 1.3 x 1.3 cm. Thyroid echotexture is diffusely heterogeneous. On color flow images, vascularity appears normal to mildly increased. No dominant nodules or suspicious masses. Isthmus: 4 mm IMPRESSION: 1. Heterogeneous appearance of the thyroid which may be associated with thyroiditis. 2. No suspicious nodule or mass. Reviewed, dictated and finalized at location [facility]. [facility] [employer] IMPRESSION: 1. Heterogeneous appearance of the thyroid which may be associated with thyroid itis. 2. No suspicious nodule or mass.
== END 2025-10-14 10:17 | disposition home or self-care (01) ==
DX: E06.3 Autoimmune thyroiditis (principal); G43.909 Migraine, unspecified, not intractable, without status migrainosus
CPT/HCPCS: 76536